=== PATIENT | male | born 2005 | race Caucasian/White ===

== ENCOUNTER 2025-06-06 18:50 | Emergency (ER) | payer OTHER, SELFPAY ==
[2025-06-06] MEDS ORDERED: predniSONE 20 MG TAB ONE (19:48)
== END 2025-06-06 20:09 | disposition home or self-care (01) ==
LOC: MADERS 18:50
DX: U07.1 COVID-19 (principal)
CPT/HCPCS: 87081; 87428; 87430; 96372; 99284; J1885; J7512